=== PATIENT | female | born 1970 | race African-American/Black ===

== ENCOUNTER 2016-09-19 23:47 | Emergency (ER) | payer SELFPAY ==
[~2016-09-19] VITALS: Ht 160 cm; Wt 88.9 kg
[~2016-09-19 23:47] MED LIST: 1-ME1LIQ PO; CYCL-36 PO
[2016-09-19 23:50] VITALS: BP 174/113; PULSE 88; RESP 16; TEMP 98; O2SAT 99
--- NOTE | 2016-09-20 00:36 | PD ---
HPI Chief Complaint: ENT Complaint Time Seen by Provider: 00:00 Travel History International Travel<30 days: No Contact w/Intl Traveler<30days: No Traveled to known affect area: No History of Present Illness HPI 45-year-old female here with left ear pain. Symptoms started 3 days ago. It is aching pain, muffled hearing in the left ear. No drainage, discharge, cough , congestion, fevers, chills. No recent swimming, recent travel. She took Advil which helped with the pain. No other complaints. PFSH Past Medical History GERD: Yes Hypertension: Yes ?: Not : 4 Para: 3 Miscarriage: 1 : 0 Past Surgical History Section: Yes Social History Alcohol Use: Yes (OCCASIONALLY) Tobacco Use: Yes (1/2 ppd ) Substance Use: No Allergies-Medications (Allergen,Severity, Reaction): Coded Allergies: No Known Allergies (Unverified , 09/20/16) Reported Meds & Prescriptions Reported Meds & Active Scripts Active Amoxicillin 875 Mg Tab 875 Mg PO BID 10 Days Review of Systems Except as stated in HPI: all other systems reviewed are Neg Physical Exam Narrative GENERAL: Well-developed well-nourished female in no acute distress SKIN: Warm and dry. HEAD: Atraumatic. Normocephalic. EYES: Pupils equal and round. No scleral icterus. No injection or drainage. ENT: No nasal bleeding or discharge. Mucous membranes pink and moist. Slight loss of landmarks left tympanic membrane, somewhat erythematous tympanic murmur and. The external ear canal as well without erythema, debris, cerumen. No mastoid tenderness. Normal dentition. No oropharyngeal erythema or exudate. NECK: Trachea midline. No JVD. No lymphadenopathy. Data Data Last Documented VS Vital Signs Date Time Temp Pulse Resp B/P Pulse Ox O2 Delivery O2 Flow Rate FiO2 09/19/16 23:50 98.0 88 16 174/113 99 Room Air MDM Medical Decision Making Medical Screen Exam Complete: Yes Emergency Medical Condition: Yes Medical Record Reviewed: Yes Differential Diagnosis Left otitis media, left otitis externa, referred dental pain, eustachian tube dysfunction, mastoiditis, ruptured tympanic membrane Narrative Course Physical examination reveals mild left otitis media. She will be discharged with oral antibiotics. Diagnosis Primary Impression: Left otitis media Qualified Code: H66.002 - Acute suppurative otitis media of left ear without spontaneous rupture of tympanic membrane, recurrence not specified Additional Instructions: Medication as prescribed. Tylenol or Motrin for discomfort. Return for any emergent medical conditions. Med/Other Pt SpecificInfo: Prescription(s) given Scripts Amoxicillin 875 Mg [id number] Mg PO BID 10 Days Ref 0 Prov:Emma Walker DO 09/20/16 Disposition: 01 DISCHARGE HOME Condition: Stable José Miguel Greene Sep 20, 2016 00:36
[2016-09-20] MEDS ORDERED: AMOX875T PO (00:37)
== END 2016-09-20 01:15 | disposition home or self-care (01) ==
LOC: NEPB 23:47
DX: H66.92 Otitis media, unspecified, left ear (principal); I10 Essential (primary) hypertension; K21.9 Gastro-esophageal reflux disease without esophagitis; F17.210 Nicotine dependence, cigarettes, uncomplicated
CPT/HCPCS: 99282

== ENCOUNTER 2016-10-09 14:55 | Emergency (ER) | payer SELFPAY ==
[~2016-10-09] VITALS: Ht 160 cm; Wt 120.0 kg
[~2016-10-09 14:55] MED LIST changes: -1-ME1LIQ PO; +AMOX875T PO; -CYCL-36 PO
[2016-10-09 14:56] VITALS: BP 171/104; PULSE 79; RESP 14; TEMP 98; O2SAT 99
[2016-10-09] MEDS ORDERED: POLY10O LEFT EYE (15:39)
--- NOTE | 2016-10-09 15:39 | PD ---
HPI Chief Complaint: Eye Problems/Injury Time Seen by Provider: 15:38 Travel History International Travel<30 days: No Contact w/Intl Traveler<30days: No Traveled to known affect area: No History of Present Illness HPI 45-year-old female presents to the emergency Department with complaint of left eye redness, itching, drainage that she noticed at approximately 4 AM this morning upon awakening. Woke up with her left eye crusted shut. Reports sensitivity to light. Denies change in vision. Denies wearing contacts. Denies injury or foreign body. No one else with symptoms like this. Denies fever, chills, nausea, vomiting. Has not taken any medications or tried any treatments to alleviate her symptoms. Was just treated for a left ear infection a few weeks ago, otherwise denies recent illness. No known allergies. Has history of hypertension but does not take medications. Denies chest pain, headaches, confusion, blurred vision, nausea, vomiting, shortness of breath. No other modifying factors or associated signs and symptoms. PFSH Past Medical History GERD: Yes Hypertension: Yes (does not take medications) ?: Not LMP: 09/09/16 : 4 Para: 3 Miscarriage: 1 : 0 Past Surgical History Section: Yes Social History Alcohol Use: Yes (OCCASIONALLY) Tobacco Use: Yes (1/2 ppd ) Substance Use: No Allergies-Medications (Allergen,Severity, Reaction): Coded Allergies: No Known Allergies (Unverified , 09/20/16) Reported Meds & Prescriptions Reported Meds & Active Scripts Active Polytrim Opth Drops (Polymyxin/Trimethoprim Sulfate) 10,000-0.1 Unit/Ml-% Soln 2 Drop LEFT EYE Q6HR 7 Days Amoxicillin 875 Mg Tab 875 Mg PO BID 10 Days Review of Systems Except as stated in HPI: all other systems reviewed are Neg Physical Exam Narrative GENERAL: Well-nourished, well-developed female patient, in no acute distress; afebrile, nontoxic-appearing SKIN: Warm and dry. HEAD: Atraumatic. Normocephalic. EYES: Pupils equal and round at 3 mm with brisk reaction. PERRLA. EOMI. Left lid eversion with no foreign body noted. Left eye with scleral erythema and without lid edema. No orbital tenderness, erythema or cellulitis. Left eye with photophobia. No consensual photophobia. No scleral icterus. Purulent drainage noted to eyelashes and inner canthus. Carlin lamp exam normal. EARS: Bilateral pinnae and external canals appear within normal limits. Bilateral tympanic membranes without erythema, dullness or perforation. ENT: Mucosa pink and moist. Airway patent. NECK: Trachea midline. CARDIOVASCULAR: Regular rate. RESPIRATORY: No accessory muscle use. GASTROINTESTINAL: Rounded. NEUROLOGICAL: Awake and alert. Oriented 3. No obvious cranial nerve deficits. Motor grossly within normal limits. Normal speech. PSYCHIATRIC: Appropriate mood and affect; insight and judgment normal. Data Data Last Documented VS Vital Signs Date Time Temp Pulse Resp B/P Pulse Ox O2 Delivery O2 Flow Rate FiO2 10/09/16 14:56 98.0 79 14 171/104 99 MDM Medical Decision Making Medical Screen Exam Complete: Yes Emergency Medical Condition: Yes Medical Record Reviewed: Yes Differential Diagnosis Conjunctivitis, foreign body, corneal abrasion Narrative Course 45-year-old female physical exam consistent with left eye conjunctivitis. Carlin lamp exam is normal. Patient says she has history of hypertension but does not take medications. Patient is asymptomatic and denies symptoms of hypertension. Polytrim eyedrops prescribed for home. Patient is medically cleared and stable for discharge. Discussed reasons to return to the emergency department. Instructed patient to follow up with primary care provider. Patient agrees with treatment plan. The patients vital signs are stable and the patient is stable for outpatient follow-up and treatment. Patient discharged home, stable and in no acute distress. Diagnosis Primary Impression: Conjunctivitis, left eye Qualified Code: H10.32 - Acute conjunctivitis of left eye, unspecified acute conjunctivitis type Referrals: Primary Care Physician Patient Instructions: Conjunctivitis (ED), General Instructions Departure Forms: Tests/Procedures, Work Release Enter return to work date: Oct 11, 2016 Additional Instructions: Conjunctivitis is contagious Use antibiotic drops as prescribed Apply warm or cool compresses to both eyes for a few minutes several times daily to minimize irritation Avoid triggers, such as allergens, that may irritate your eyes Wash your hands frequently Do not share washcloths, towels, pillows, or any other material that has touched your eyes with any other household members Follow-up with your primary care provider Follow-up with ophthalmology as needed Return to the emergency department immediately with worsening of symptoms Med/Other Pt SpecificInfo: Prescription(s) given Scripts Polymyxin B-Trimethoprim Opth Drops (Polytrim Opth Drops)10,000-0.1 Unit/Ml-% Soln2 Drop LEFT EYE Q6HR 7 Days Ref 0 Prov:Laquita Diaz 10/09/16 Disposition: 01 DISCHARGE HOME Condition: Stable Laquita Diaz Oct 09, 2016 15:39
== END 2016-10-09 15:54 | disposition home or self-care (01) ==
LOC: NEPB 14:55
DX: H10.32 Unspecified acute conjunctivitis, left eye (principal)
CPT/HCPCS: 99282

== ENCOUNTER 2016-11-11 11:59 | Emergency (ER) | payer OTHER, BC ==
[~2016-11-11] VITALS: Ht 160 cm; Wt 80.0 kg
[~2016-11-11 11:59] MED LIST changes: +POLY10O LEFT EYE
[2016-11-11 12:00] VITALS: BP 177/112; PULSE 72; RESP 18; TEMP 98.2; O2SAT 98
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
[2016-11-11] MEDS ORDERED: KETOROLAC TROMETHAMINE 60 MG/2 ML (IM) VIAL IM ONE (12:45)
[2016-11-11] MEDS ORDERED: ORPHENADRINE INJ 60 MG/2 ML AMP IM ONE (12:45)
[2016-11-11 13:23] VITALS: BP 161/84; PULSE 66
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
[2016-11-11] MEDS ORDERED: IBUP800T23 PO (14:04)
[2016-11-11] MEDS ORDERED: ROBA500T PO (14:04)
== END 2016-11-11 15:59 | disposition home or self-care (01) ==
LOC: NEPB 11:59
DX: S93.401A Sprain of unspecified ligament of right ankle, initial encounter (principal); S40.011A Contusion of right shoulder, initial encounter; F17.210 Nicotine dependence, cigarettes, uncomplicated; I10 Essential (primary) hypertension; R07.89 Other chest pain; V49.49XA Driver injured in collision with other motor vehicles in traffic accident, initial encounter; Y93.89 Activity, other specified; Y92.410 Unspecified street and highway as the place of occurrence of the external cause
CPT/HCPCS: 71010; 73030; 73610; 96372; 99284; E0113; J1885; J2360; L1906

== ENCOUNTER 2016-12-27 23:29 | Emergency (ER) | payer BC ==
[~2016-12-27] VITALS: Ht 172.7 cm; Wt 65.0 kg
[~2016-12-27 23:29] MED LIST changes: +IBUP800T23 PO; +ROBA500T PO
[2016-12-27 23:32] VITALS: BP 159/94; PULSE 85; RESP 16; TEMP 98.7
[2016-12-28] MEDS ORDERED: PRED20 PO (12:08)
[2016-12-28] MEDS ORDERED: CYCL1TAB29 PO (12:08)
== END 2016-12-28 02:53 | disposition left against medical advice (07) ==
LOC: NED 23:29
DX: M79.1 Myalgia (principal)
CPT/HCPCS: 99281

== ENCOUNTER 2016-12-28 11:19 | Emergency (ER) | payer BC ==
[~2016-12-28] VITALS: Ht 162.6 cm; Wt 82.0 kg
[2016-12-28 11:21] VITALS: BP 181/123; PULSE 83; RESP 20; TEMP 98; O2SAT 99
[2016-12-28] MEDS ORDERED: KETOROLAC TROMETHAMINE 60 MG/2 ML (IM) VIAL IM ONE (12:00)
[2016-12-28] MEDS ORDERED: PRED20 PO (12:08)
[2016-12-28] MEDS ORDERED: CYCL1TAB29 PO (12:08)
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
== END 2016-12-28 12:39 | disposition home or self-care (01) ==
LOC: NEPD 11:19
DX: M54.32 Sciatica, left side (principal); I10 Essential (primary) hypertension; F17.210 Nicotine dependence, cigarettes, uncomplicated; V89.2XXD Person injured in unspecified motor-vehicle accident, traffic, subsequent encounter
CPT/HCPCS: 96372; 99283; J1885

== ENCOUNTER 2017-09-12 11:54 | Observation (INO) | payer SELFPAY ==
[~2017-09-12] VITALS: Ht 162.6 cm; Wt 90.0 kg
[2017-09-12] VITALS (8 sets, daily range): BP systolic 141–215; BP diastolic 85–127; PULSE 67–86; RESP 16–18; TEMP 98–98.6; O2SAT 97–100
[~2017-09-12 11:54] MED LIST changes: -AMOX875T PO; +CYCL10TA PO; -IBUP800T23 PO; -POLY10O LEFT EYE; +PRED20 PO; -ROBA500T PO
--- NOTE | 2017-09-12 12:13 | PD ---
HPI Chief Complaint: Chest Pain Time Seen by Provider: 12:04 Travel History International Travel<30 days: No Contact w/Intl Traveler<30days: No Traveled to known affect area: No History of Present Illness HPI 46-year-old Afro-[place]hi female presents to emergency department with history of chest pressure and discomfort with radiation to the left arm starting yesterday and intermittently worsening over the past 24 hours. Patient has no documented medical history of this states she's had in the past but did not get seen. Patient currently has no history of heart disease or hypercholesterolemia. She is noted to be hypertensive in triage but states she is not on any medications currently. Has history of GERD treated with over-the- counter ranitidine. She reports no recent heartburn symptoms. She denies nausea or vomiting. Denies shortness of breath but describes her pain as a tightness in the left upper chest with intermittent pain. Pain is currently 5- 6 out of 10. She denies abdominal pain. She denies urinary symptoms. She is an occasional smoker but denies significant alcohol use. No recent fever or other illness. There is a strong family history of hypertension and heart disease in the family. Patient has not tried taking anything for this. She does not take aspirin. She has no known drug allergies. PFSH Past Medical History GERD: Yes Hypertension: Yes Immunizations Current: Yes ?: Not LMP: 08/03/17 : 4 Para: 3 Miscarriage: 1 : 0 Past Surgical History Section: Yes (X1) Social History Alcohol Use: Yes (OCCASIONALLY) Tobacco Use: Yes (6-7 ppd) Substance Use: No Allergies-Medications (Allergen,Severity, Reaction): Coded Allergies: No Known Allergies (Unverified , 09/12/17) Reported Meds & Prescriptions Reported Meds & Active Scripts Active No Active Prescriptions or Reported Medications Review of Systems Except as stated in HPI: all other systems reviewed are Neg General / Constitutional: No: Fever Eyes: No: Visual changes HENT: No: Headaches Cardiovascular: Positive: Chest Pain or Discomfort, No: Palpitations, Irregular Rhythm, Tachycardia, Diaphoresis, Syncope, Dyspnea on exertion, Varicosities, Edema Respiratory: No: Cough, Shortness of Breath, Wheezing Gastrointestinal: No: Nausea, Vomiting, Diarrhea, Abdominal Pain Genitourinary: No: Dysuria Musculoskeletal: No: Pain Skin: No Rash Neurologic: No: Weakness Psychiatric: No: Depression Endocrine: No: Polydipsia Hematologic/Lymphatic: No: Easy Bruising Physical Exam Narrative GENERAL: Patient appears mildly uncomfortable and somewhat anxious. SKIN: Warm and dry. Normal color. Normal turgor. No diaphoresis. HEAD: Atraumatic. Normocephalic. EYES: Pupils equal and round. No scleral icterus. No injection or drainage. ENT: No nasal bleeding or discharge. Mucous membranes pink and moist. Pharynx is clear. Airway is patent. NECK: Trachea midline. Supple nontender. CARDIOVASCULAR: Regular rate and rhythm. RESPIRATORY: No accessory muscle use. Clear to auscultation. Breath sounds equal bilaterally. GASTROINTESTINAL: Abdomen soft, non-tender, nondistended. Hepatic and splenic margins not palpable. MUSCULOSKELETAL: Extremities without clubbing, cyanosis, or edema. No obvious deformities. NEUROLOGICAL: Awake and alert. No obvious cranial nerve deficits. Motor grossly within normal limits. Five out of 5 muscle strength in the arms and legs. Normal speech. PSYCHIATRIC: Appropriate mood and affect; insight and judgment normal. Data Data Last Documented VS Vital Signs Date Time Temp Pulse Resp B/P (MAP) Pulse Ox O2 Delivery O2 Flow Rate FiO2 09/12/17 12:12 86 16 215/127 (156) 100 Room Air 165/96 (119) 09/12/17 11:57 98.6 Orders Orders Electrocardiogram (09/12/17 12:09) Ckmb (Isoenzyme) Profile (09/12/17 12:09) Complete Blood Count With Diff (09/12/17 12:09) Comprehensive Metabolic Panel (09/12/17 12:09) D-Dimer (09/12/17 12:09) Magnesium (Mg) (09/12/17 12:09) Prothrombin Time / Inr (Pt) (09/12/17 12:09) Act Partial Throm Time (Ptt) (09/12/17 12:09) Troponin I (09/12/17 12:09) Lipase (09/12/17 12:09) Chest, Single Ap (09/12/17 12:09) Ecg Monitoring (09/12/17 12:09) Bilateral Bp Monitoring (09/12/17 12:09) Iv Access Insert/Monitor (09/12/17 12:09) Oximetry (09/12/17 12:09) Oxygen Administration (09/12/17 12:09) Aspirin Chew (Aspirin Chew) (09/12/17 12:15) Morphine Inj (Morphine Inj) (09/12/17 12:15) Sodium Chloride 0.9% Flush (Ns Flush) (09/12/17 12:15) Nitroglycerin Sl (Nitrostat Sl) (09/12/17 12:15) Metoprolol Tartrate Inj (Lopressor Inj) (09/12/17 12:15) Sodium Chlorid 0.9% 500 Ml Inj (Ns 500 M (09/12/17 12:15) Morphine Inj (Morphine Inj) (09/12/17 12:15) CKMB (09/12/17 12:20) CKMB% (09/12/17 12:20) Admit Order (Ed Use Only) (09/12/17 13:09) Labs Laboratory Tests Test 09/12/17 12:20 White Blood Count 6.8 TH/MM3 Red Blood Count 4.11 MIL/MM3 Hemoglobin 12.8 GM/DL Hematocrit 38.1 % Mean Corpuscular Volume 92.8 FL Mean Corpuscular Hemoglobin 31.2 PG Mean Corpuscular Hemoglobin Concent 33.6 % Red Cell Distribution Width 15.3 % Platelet Count 318 TH/MM3 Mean Platelet Volume 7.1 FL Neutrophils (%) (Auto) 55.6 % Lymphocytes (%) (Auto) 33.5 % Monocytes (%) (Auto) 7.3 % Eosinophils (%) (Auto) 2.9 % Basophils (%) (Auto) 0.7 % Neutrophils # (Auto) 3.8 TH/MM3 Lymphocytes # (Auto) 2.3 TH/MM3 Monocytes # (Auto) 0.5 TH/MM3 Eosinophils # (Auto) 0.2 TH/MM3 Basophils # (Auto) 0.1 TH/MM3 CBC Comment DIFF FINAL Differential Comment Prothrombin Time 9.7 SEC Prothromb Time International Ratio 1.0 RATIO Activated Partial Thromboplast Time 26.5 SEC D-Dimer Quantitative (PE/DVT) 0.70 MG/L FEU Blood Urea Nitrogen 15 MG/DL Creatinine 0.97 MG/DL Random Glucose 88 MG/DL Total Protein 7.8 GM/DL Albumin 3.5 GM/DL Calcium Level 8.4 MG/DL Magnesium Level 1.9 MG/DL Alkaline Phosphatase 72 U/L Aspartate Amino Transf (AST/SGOT) 15 U/L Alanine Aminotransferase (ALT/SGPT) 19 U/L Total Bilirubin 0.3 MG/DL Sodium Level 139 MEQ/L Potassium Level 4.3 MEQ/L Chloride Level 108 MEQ/L Carbon Dioxide Level 23.4 MEQ/L Anion Gap 8 MEQ/L Estimat Glomerular Filtration Rate 75 ML/MIN Total Creatine Kinase 120 U/L Creatine Kinase MB 0.9 NG/ML Troponin I LESS THAN 0.02 NG/ML Lipase 162 U/L MDM Medical Decision Making Medical Screen Exam Complete: Yes Emergency Medical Condition: Yes Differential Diagnosis Atypical chest pain. Chest pressure. Cardiac syndrome. Hypertensive crisis. Narrative Course Patient appears medically stable at time of exam. EKG is performed showing normal sinus rhythm without ST specific ST changes. IV access is obtained and labs are ordered including CBC, CMP, lipase, cardiac panel, coagulation studies, and d-dimer. The patient is given 324 mg aspirin by mouth as well as 2 mg morphine IV as well as sublingual nitroglycerin and 3 when necessary. Lopressor IV 5 mg 3 when necessary is also ordered. The patient was given 324 mg aspirin as well as sublingual nitroglycerin and 2 mg morphine IV with resolution of pain. Blood pressure also normalized to 150/83. Lopressor was held. Third nitroglycerin was held. Labs show normal CBC, unremarkable CMP, lipase is normal. Coagulation studies are normal as well. D-dimer is 0.70. CTA was ordered and is negative per radiologist for pulmonary embolism. Troponin is 0.02 Patient agrees to be admitted to the chest pain center. Diagnosis Primary Impression: Chest pain at rest Admitting Information Admitting Physician Requests: Observation Scripts No Active Prescriptions or Reported Meds Condition: Stable Shailesh Rogers Sep 12, 2017 12:13
[2017-09-12] MEDS ORDERED: SODIUM CHLORID 0.9% 500 ML INJ 500 ML IV ONE (12:15)
[2017-09-12] MEDS ORDERED: MORPHINE SULFATE 2 MG/ML INJ IV PUSH ONE (12:15)
[2017-09-12] MEDS ORDERED: MORPHINE SULFATE 4 MG/ML INJ IV PUSH ONE (12:15)
[2017-09-12] MEDS ORDERED: SODIUM CHLORIDE 0.9% FLUSH 10 ML FLUSH IVF PRN (12:15)
[2017-09-12] MEDS ORDERED: ASPIRIN 81 MG CHEW TAB PO ONE (12:15)
[2017-09-12] MEDS: METOPROLOL TARTRATE 5 MG/5 ML VIAL IVS SCH ×3 (12:15→12:25)
[2017-09-12] MEDS: NITROGLYCERIN 0.4 MG SL 25 TABS/BTL SL SCH ×3 (12:25→12:45)
[2017-09-12 12:36] LABS: AUTOMATED NEUTROPHIL # 3.8 TH/MM3 (1.8-7.7); BASOPHIL # 0.1 TH/MM3 (0-0.2); BASOPHIL % 0.7 % (0.0-2.0); EOSINOPHIL # 0.2 TH/MM3 (0-0.4); EOSINOPHIL % 2.9 % (0.0-4.0); HEMATOCRIT 38.1 % (35.0-46.0); HEMOGLOBIN 12.8 GM/DL (11.6-15.3); LYMPH % 33.5 % (9.0-44.0); LYMPHOCYTE # 2.3 TH/MM3 (1.0-4.8); MEAN CELL VOLUME 92.8 FL (80.0-100.0); MEAN CORPUSCULAR HEMOGLOBIN 31.2 PG (27.0-34.0); MEAN CORPUSCULAR HGB CONC 33.6 % (32.0-36.0); MEAN PLATELET VOLUME 7.1 FL (7.0-11.0); MONO % 7.3 % (0.0-8.0); MONOCYTE # 0.5 TH/MM3 (0-0.9); NEUT % 55.6 % (16.0-70.0); PLATELET COUNT 318 TH/MM3 (150-450); RED BLOOD COUNT 4.11 MIL/MM3 (4.00-5.30); RED CELL DISTRIBUTION WIDTH 15.3 % (11.6-17.2); WHITE BLOOD COUNT 6.8 TH/MM3 (4.0-11.0)
[2017-09-12 12:51] LABS: PROTHROMBIN TIME - PATIENT 9.7 SEC (9.8-11.6)
[2017-09-12 12:53] LABS: ALBUMIN 3.5 GM/DL (3.4-5.0); AST (GOT) 15 U/L (15-37); BICARBONATE 23.4 MEQ/L (21.0-32.0); BLOOD UREA NITROGEN 15 MG/DL (7-18); CALCIUM 8.4 MG/DL (8.5-10.1); CHLORIDE 108 MEQ/L (98-107); CREATININE 0.97 MG/DL (0.50-1.00); GLOMERULAR FILTRATION RATE 75 ML/MIN (>89); GLUCOSE,RANDOM 88 MG/DL (74-106); LIPASE 162 U/L (73-393); MAGNESIUM 1.9 MG/DL (1.5-2.5); SODIUM (NA) 139 MEQ/L (136-145)
[2017-09-12 12:54] LABS: ALT (GPT) 19 U/L (10-53)
--- NOTE | 2017-09-12 12:58 | RADRPT ---
EXAM DATE/TIME: 09/12/2017 12:32 [facility] COMPARISON: CHEST SINGLE AP, November 11, 2016, 13:07. INDICATIONS : Chest tightness and left sided chest pain for one day. MEDICAL HISTORY : Hypertension. SURGICAL HISTORY : None. ENCOUNTER: Initial ACUITY: 2 days PAIN SCORE: 5/10 LOCATION: Left chest FINDINGS: A single view of the chest demonstrates the lungs to be symmetrically aerated without evidence of mas s, infiltrate or effusion. The cardiomediastinal contours are unremarkable. Osseous structures are intact. CONCLUSION: Normal examination. Cleve Roy MD on September 12, 2017 at 12:56 Board Certified Radiologist. This report was verified electronically.
[2017-09-12 12:59] LABS: ALKALINE PHOSPHATASE 72 U/L (45-117); TOTAL BILIRUBIN ADULT 0.3 MG/DL (0.2-1.0); TOTAL PROTEIN 7.8 GM/DL (6.4-8.2); TROPONIN I LESS THAN 0.02 NG/ML (0.02-0.05)
[2017-09-12 13:15] LABS: D-DIMER 0.7 MG/L FEU (0.00-0.50)
[2017-09-12] MEDS ORDERED: IOHEXOL 350 MG/ML 10 ML VIAL (for RAD DIAG) IVCONTRAST ONE (14:05)
--- NOTE | 2017-09-12 14:10 | RADRPT ---
EXAM DATE/TIME: 09/12/2017 13:50 [facility] COMPARISON: No previous studies available for comparison. INDICATIONS : Chest pain/ pressure. IV CONTRAST: 80 cc Omnipaque 350 (iohexol) IV RADIATION DOSE: 22.96 CTDIvol (mGy) MEDICAL HISTORY : Hypertension. Gastroesophageal reflux disease. SURGICAL HISTORY : None. ENCOUNTER: Initial ACUITY: 2 days PAIN SCALE: 7/10 LOCATION: Bilateral chest TECHNIQUE: Volumetric scanning of the chest was performed using a pulmonary embolism protocol MIP images were re constructed. Using automated exposure control and adjustment of the mA and/or kV according to patien t size, radiation dose was kept as low as reasonably achievable to obtain optimal diagnostic quality images. DICOM format image data is available electronically for review and comparison. Follow-up recommendations for detected pulmonary nodules are based at a minimum on nodule size and pa tient risk factors according to Fleischner Society Guidelines. FINDINGS: PULMONARY ARTERIES: The opacification of the pulmonary arteries is suboptimal. There is better enhancement of the pulmona ry veins and systemic arterial structures in the chest. No filling defects are seen in the pulmonary arteries through the segmental level. LUNGS: There is stable minimal linear atelectasis at the left lingula and at the posterior subpleural lower lobes. PLEURAE: There is no pleural thickening or pleural effusion. MEDIASTINUM: There is good visualization of the great vessels of the middle mediastinum. No evidence of mediastin al or hilar adenopathy/mass. MUSCULOSKELETAL: Within normal limits for patient age. MISCELLANEOUS: The visualized upper abdominal organs demonstrate no acute abnormality. CONCLUSION: No pulmonary embolus seen. Cleve Roy MD on September 12, 2017 at 14:04 Board Certified Radiologist. This report was verified electronically.
[2017-09-12] MEDS ORDERED: ONDANSETRON HCL 4 MG/2 ML VIAL IV PUSH PRN (14:15)
[2017-09-12] MEDS ORDERED: ACETAMINOPHEN 500 MG CPLT PO PRN (14:15)
[2017-09-12] MEDS ORDERED: NITROGLYCERIN 0.4 MG SL 25 TABS/BTL SL PRN (14:15)
--- NOTE | 2017-09-12 15:02 | PD.CARD.PN ---
Subjective Subjective Remarks Discussed and reviewed with AUDIT MGR 46 yo black lady with about a years history of internittant chest pain that is variable in location, duration and character. She can define no precipitating or relieving events. It happens all hours of day but perhaps more common in late afternoon. Usually lasts an hour or more but can last all day. No radiation, no SOB, Diaphoresis, nausea associated. She also has a problem with reflux and GI pain but feels this is a bit different. History fully discussed in H&P Objective Medications Current Medications Medications (Trade) Dose Ordered Sig/Madison Route Start Time Stop Time Status Last Admin (NS Flush) 2 ml UNSCH PRN IVF 09/12/17 12:15 (NS Flush) 2 ml BID IV FLUSH 09/12/17 21:00 (Tylenol) 500 mg Q4H PRN PO 09/12/17 14:15 (Zofran Inj) 4 mg Q6H PRN IV PUSH 09/12/17 14:15 (Nitrostat Sl) 0.4 mg Q5M PRN SL 09/12/17 14:15 (Aspirin) 325 mg DAILY PO 09/13/17 09:00 Vital Signs / I&O Vital Signs Date Time Temp Pulse Resp B/P (MAP) Pulse Ox O2 Delivery O2 Flow Rate FiO2 09/12/17 14:09 82 16 157/96 (116) 98 Room Air 09/12/17 12:12 86 16 215/127 (156) 100 Room Air 165/96 (119) 09/12/17 11:57 98.6 77 16 203/108 (139) 100 Room Air I/O 09/11/17 09/11/17 09/11/17 09/12/17 09/12/17 09/12/17 07:00 15:00 23:00 07:00 15:00 23:00 Intake Total 500 ml Balance 500 ml Intake IV Total 500 ml Physical Exam Obese tattoos Neck without JVD, masses nodes or bruits Chest with decreased BS (prob due to obesity) but clear CV RSR with no GRM Abd very obese with no GR or mass palpable Ext with no CCE although she reports that she swells frequently Laboratory Laboratory Tests Test 09/12/17 12:20 White Blood Count 6.8 TH/MM3 Red Blood Count 4.11 MIL/MM3 Hemoglobin 12.8 GM/DL Hematocrit 38.1 % Mean Corpuscular Volume 92.8 FL Mean Corpuscular Hemoglobin 31.2 PG Mean Corpuscular Hemoglobin Concent 33.6 % Red Cell Distribution Width 15.3 % Platelet Count 318 TH/MM3 Mean Platelet Volume 7.1 FL Neutrophils (%) (Auto) 55.6 % Lymphocytes (%) (Auto) 33.5 % Monocytes (%) (Auto) 7.3 % Eosinophils (%) (Auto) 2.9 % Basophils (%) (Auto) 0.7 % Neutrophils # (Auto) 3.8 TH/MM3 Lymphocytes # (Auto) 2.3 TH/MM3 Monocytes # (Auto) 0.5 TH/MM3 Eosinophils # (Auto) 0.2 TH/MM3 Basophils # (Auto) 0.1 TH/MM3 CBC Comment DIFF FINAL Differential Comment Prothrombin Time 9.7 SEC Prothromb Time International Ratio 1.0 RATIO Activated Partial Thromboplast Time 26.5 SEC D-Dimer Quantitative (PE/DVT) 0.70 MG/L FEU Blood Urea Nitrogen 15 MG/DL Creatinine 0.97 MG/DL Random Glucose 88 MG/DL Total Protein 7.8 GM/DL Albumin 3.5 GM/DL Calcium Level 8.4 MG/DL Magnesium Level 1.9 MG/DL Alkaline Phosphatase 72 U/L Aspartate Amino Transf (AST/SGOT) 15 U/L Alanine Aminotransferase (ALT/SGPT) 19 U/L Total Bilirubin 0.3 MG/DL Sodium Level 139 MEQ/L Potassium Level 4.3 MEQ/L Chloride Level 108 MEQ/L Carbon Dioxide Level 23.4 MEQ/L Anion Gap 8 MEQ/L Estimat Glomerular Filtration Rate 75 ML/MIN Total Creatine Kinase 120 U/L Creatine Kinase MB 0.9 NG/ML Troponin I LESS THAN 0.02 NG/ML Lipase 162 U/L Imaging Last [address] Angiography 09/12/17 1322 Signed Impressions: Service Date/Time: Tuesday, September 12, 2017 13:50 - CONCLUSION: No pulmonary embolus seen. Cleve Roy MD Chest X-Ray 09/12/17 1209 Signed Impressions: Service Date/Time: Tuesday, September 12, 2017 12:32 - CONCLUSION: Normal examination. Cleve Roy MD Assessment and Plan Problem List: (1) Chest pain, atypical ICD Codes: R07.89 - Other chest pain Status: Acute Plan: Evaluate with QUALITY CONTROL COORDINATOR protocol (2) Obesity ICD Codes: E66.9 - Obesity, unspecified Plan: Discussed need to diet and exercise (3) GERD (gastroesophageal reflux disease) ICD Codes: K21.9 - Gastro-esophageal reflux disease without esophagitis Plan: Needs to develop FU with OP PCP and GI Rios Carlson MD Sep 12, 2017 15:02
--- NOTE | 2017-09-12 15:39 | HHI.HP ---
HPI Service [facility] Dr. Carlson Primary Care Physician No Primary Care Physician Chief Complaint chest pain History of Present Illness 1 year history of intermittent chest pains without any precipitating factors, can occur with activity or rest. Typically can occur intermittently throughout the day and last for hours. Began yesterday afternoon and was still occurring and worsening this morning prompting her to come to the ER for evaluation. She does get associated nausea but no vomiting. Does have a history of GERD and was on Rx medicine when she had a PCP, now takes OTC Zantac with some relief. At times also gets associated dyspnea. Has diaphoresis intermittently but doesn't believe related. Has swelling of ankles with prolonged standing at work or with sitting but generally improves at night when legs elevated. No PND or Orthopnea. Denies any past cardiac work up. Nitro SL did not help the pain but endorses the Morphine decreased it to a low level. Has had B/P elevations in past and endorses she was recommended to treat with healthy lifestyle changes, has not been on medication for it. Review of Systems Consitutional: DENIES: Fatigue, Fever, Chills, Weight gain, Weight loss Eyes: DENIES: Amaurosis Fugax, Change in vision HEENT: DENIES: Lightheadedness, Change in hearing Respiratory: COMPLAINS OF: See HPI, Shortness of breath Cardiovascular: COMPLAINS OF: See HPI, Chest pain Gastrointestinal: COMPLAINS OF: Nausea, Reflux Genitourinary: DENIES: Urinary incontinence, Difficulty voiding Integumentary: DENIES: Rash Neurologic: DENIES: Tingling or numbness, Memory problems, Poor Balance, Stroke symptoms Musculoskeletal: DENIES: Joint pain, Muscle pain, Limited range of motion, Back pain Psychiatric: DENIES: Anxiety, Depression, Sleep disturbances Hematologic: DENIES: Bruising tendencies, Bleeding tendencies Endocrine: DENIES: Weight gain, Weight loss, Thyroid disease Past Family Social History Allergies: Coded Allergies: No Known Allergies (Unverified , 09/12/17) Past Medical History GERD, HTN, Obesity Past Surgical History x 1 Reported Medications Reported Meds & Active Scripts Active No Active Prescriptions or Reported Medications OTC Zantac PRN GERD symptoms Active Ordered Medications Current Medications Medications (Trade) Dose Ordered Sig/[place] Route Start Time Stop Time Status Last Admin (NS Flush) 2 ml UNSCH PRN IVF 09/12/17 12:15 (NS Flush) 2 ml BID IV FLUSH 09/12/17 21:00 (Tylenol) 500 mg Q4H PRN PO 09/12/17 14:15 (Zofran Inj) 4 mg Q6H PRN IV PUSH 09/12/17 14:15 (Nitrostat Sl) 0.4 mg Q5M PRN SL 09/12/17 14:15 (Aspirin) 325 mg DAILY PO 09/13/17 09:00 Family History Mom with HTN. Both Maternal Grandparents with heart disease. Father's history is unknown. Maternal Grandfather with heart disease. Social History Works in [employer]. Drinks ETOH occasionally on the weekends. Tobacco use 1/3 PPD x 6 years. Denies Illicit drug use. Endorses active at work duties, doesn't exercise much outside of work. Physical Exam Vital Signs Vital Signs Date Time Temp Pulse Resp B/P (MAP) Pulse Ox O2 Delivery O2 Flow Rate FiO2 09/12/17 15:00 09/12/17 14:09 82 16 157/96 (116) 98 Room Air 09/12/17 12:12 86 16 215/127 (156) 100 Room Air 165/96 (119) 09/12/17 11:57 98.6 77 16 203/108 (139) 100 Room Air Physical Exam GENERAL: 46 y.o. AA obese female laying quietly on stretcher seen in ER. Pleasant and friendly, well appearing in NAD. SKIN: Warm and dry. HEAD: Atraumatic. Normocephalic. EYES: Pupils equal and round. No scleral icterus. No injection or drainage. ENT: No nasal bleeding or discharge. Mucous membranes pink and moist. NECK: Trachea midline. No JVD. No Carotid Bruits. CARDIOVASCULAR: Regular rate and rhythm. Two heart sounds. No rub, gallop, or murmur. RESPIRATORY: No accessory muscle use. Clear to auscultation. Breath sounds equal bilaterally. GASTROINTESTINAL: Abdomen soft, obese, non-tender, nondistended. Hepatic and splenic margins not palpable. MUSCULOSKELETAL: Extremities without clubbing, cyanosis, or edema. No obvious deformities. NEUROLOGICAL: Awake and alert. No obvious cranial nerve deficits. Motor grossly within normal limits. Five out of 5 muscle strength in the arms and legs. Normal speech. PSYCHIATRIC: Appropriate mood and affect; insight and judgment normal. Laboratory Laboratory Tests Test 09/12/17 12:20 White Blood Count 6.8 Red Blood Count 4.11 Hemoglobin 12.8 Hematocrit 38.1 Mean Corpuscular Volume 92.8 Mean Corpuscular Hemoglobin 31.2 Mean Corpuscular Hemoglobin Concent 33.6 Red Cell Distribution Width 15.3 Platelet Count 318 Mean Platelet Volume 7.1 Neutrophils (%) (Auto) 55.6 Lymphocytes (%) (Auto) 33.5 Monocytes (%) (Auto) 7.3 Eosinophils (%) (Auto) 2.9 Basophils (%) (Auto) 0.7 Neutrophils # (Auto) 3.8 Lymphocytes # (Auto) 2.3 Monocytes # (Auto) 0.5 Eosinophils # (Auto) 0.2 Basophils # (Auto) 0.1 CBC Comment DIFF FINAL Differential Comment Prothrombin Time 9.7 Prothromb Time International Ratio 1.0 Activated Partial Thromboplast Time 26.5 D-Dimer Quantitative (PE/DVT) 0.70 Blood Urea Nitrogen 15 Creatinine 0.97 Random Glucose 88 Total Protein 7.8 Albumin 3.5 Calcium Level 8.4 Magnesium Level 1.9 Alkaline Phosphatase 72 Aspartate Amino Transf (AST/SGOT) 15 Alanine Aminotransferase (ALT/SGPT) 19 Total Bilirubin 0.3 Sodium Level 139 Potassium Level 4.3 Chloride Level 108 Carbon Dioxide Level 23.4 Anion Gap 8 Estimat Glomerular Filtration Rate 75 Total Creatine Kinase 120 Creatine Kinase MB 0.9 Troponin I LESS THAN 0.02 Lipase 162 Result Diagram: 09/12/17 1220 09/12/17 1220 Imaging Last [address] Angiography 09/12/17 1322 Signed Impressions: Service Date/Time: Tuesday, September 12, 2017 13:50 - CONCLUSION: No pulmonary embolus seen. Cleve Roy MD Chest X-Ray 09/12/17 1209 Signed Impressions: Service Date/Time: Tuesday, September 12, 2017 12:32 - CONCLUSION: Normal examination. Cleve Roy MD Course EKG #1 SR with Sinus Arrhythmia. Minimal voltage criteria for LVH. No ischemia Caprini VTE Risk Assessment Caprini VTE Risk Assessment: No/Low Risk (score <= 1) Caprini Risk Assessment Model Point Value = 1 Point Value = 2 Point Value = 3 Point Value = 5 Age 41-60 Minor surgery BMI > 25 kg/m2 Swollen legs Varicose veins or History of unexplained or recurrent spontaneous Oral contraceptives or hormone replacement Sepsis (< 1 month) Serious lung disease, including pneumonia (< 1 month) Abnormal pulmonary function Acute myocardial infarction Congestive heart failure (< 1 month) History of inflammatory bowel disease Medical patient at bed rest Age 61-74 Arthroscopic surgery Major open surgery (> 45 min) Laparoscopic surgery (> 45 min) Malignancy Confined to bed (> 72 hours) Immobilizing plaster cast Central venous access Age >= 75 History of VTE Family history of VTE Factor V Leiden Prothrombin [id number] Lupus anticoagulant Anticardiolipin antibodies Elevated serum homocysteine Heparin-induced thrombocytopenia Other congenital or acquired thrombophilia Stroke (< 1 month) Elective arthroplasty Hip, pelvis, or leg fracture Acute spinal cord injury (< 1 month) Prophylaxis Regimen Total Risk Factor Score Risk Level Prophylaxis Regimen 0-1 Low Early ambulation 2 Moderate Order ONE of the following: *Sequential Compression Device (SCD) *Heparin 5000 units SQ BID 3-4 Higher Order ONE of the following medications: *Heparin 5000 units SQ TID *Enoxaparin/Lovenox 40 mg SQ daily (WT < 150 kg, CrCl > 30 mL/min) *Enoxaparin/Lovenox 30 mg SQ daily (WT < 150 kg, CrCl > 10-29 mL/min) *Enoxaparin/Lovenox 30 mg SQ BID (WT < 150 kg, CrCl > 30 mL/min) AND/OR *Sequential Compression Device (SCD) 5 or more Highest Order ONE of the following medications: *Heparin 5000 units SQ TID (Preferred with Epidurals) *Enoxaparin/Lovenox 40 mg SQ daily (WT < 150 kg, CrCl > 30 mL/min) *Enoxaparin/Lovenox 30 mg SQ daily (WT < 150 kg, CrCl > 10-29 mL/min) *Enoxaparin/Lovenox 30 mg SQ BID (WT < 150 kg, CrCl > 30 mL/min) AND *Sequential Compression Device (SCD) Assessment and Plan Problem List: (1) Chest pain, atypical ICD Codes: R07.89 - Other chest pain Status: Acute Plan: Patient will stay in [facility] for 23 hr observation with completion of rule out for ACS with serial EKGs/Enzymes. Patient was seen and evaluated by Dr. Carlson in Cardiology. Plan for Lexiscan in AM for further cardiac evaluation if patient rules out. (2) Obesity ICD Codes: E66.9 - Obesity, unspecified Status: Chronic Plan: Encourage heart healthy weight management diet and exercise to tolerance. F/U with PCP of choice encouraged. (3) GERD (gastroesophageal reflux disease) ICD Codes: K21.9 - Gastro-esophageal reflux disease without esophagitis Status: Chronic Plan: OTC Ranitidine PRN. F/U with PCP. Healthy lifestyle changes recommended. Tobacco Cessation recommended and discussed. (4) Elevated blood pressure reading ICD Codes: R03.0 - Elevated blood-pressure reading, without diagnosis of hypertension Plan: Monitor blood pressure during admission. Healthy lifestyle changes recommended as well as f/u PCP. Addition of B/P medication if necessary. Code Status Full code Discussed Condition With Dr. Carlson reviewed all history and examined patient & further plan recommended as above. Problem Qualifiers (1) Obesity: Qualified Codes: E66.09 - Other obesity due to excess calories; Z68.34 - Body mass index (bmi) 34.0-34.9, adult Ratna Hayward [facility] Sep 12, 2017 15:39
[2017-09-12] MEDS ORDERED: FAMOTIDINE 20 MG TAB PO PRN (15:45)
[2017-09-12] MEDS ORDERED: cloNIDine HCL 0.1 MG TAB PO PRN (16:00)
[2017-09-12 16:15] LABS: TROPONIN I LESS THAN 0.02 NG/ML (0.02-0.05)
[2017-09-12 18:48] LABS: TROPONIN I LESS THAN 0.02 NG/ML (0.02-0.05)
[2017-09-12] MEDS: SODIUM CHLORIDE 0.9% FLUSH 10 ML FLUSH IV FLUSH SCH (20:08)
--- NOTE | 2017-09-12 22:16 | EKG ---
Date Performed: 09/12/2017 Time Performed: 12:10:44 PTAGE: 46 years EKG: Sinus rhythm WITH SINUS ARRHYTHMIA MINIMAL VOLTAGE CRITERIA FOR LVH, CONSIDER NORMAL VARIANT BORDERLINE ECG NO PREVIOUS TRACING DOCTOR: Reilly Hoffman Interpretating Date/Time 09/12/2017 22:15:26
[2017-09-13 03:17] VITALS: BP 111/82; PULSE 77; RESP 18; TEMP 98.9; O2SAT 97
[2017-09-13 07:42] VITALS: BP 135/83; PULSE 65; RESP 19; TEMP 98; O2SAT 99
--- NOTE | 2017-09-13 07:46 | EKG ---
Date Performed: 09/12/2017 Time Performed: 15:54:35 PTAGE: 46 years EKG: Sinus rhythm NORMAL ECG PREVIOUS TRACING : 09/12/2017 12.10 Since previous tracing, no significant change noted DOCTOR: Shivam Colin Interpretating Date/Time 09/13/2017 07:46:01
--- NOTE | 2017-09-13 07:47 | EKG ---
Date Performed: 09/12/2017 Time Performed: 18:26:58 PTAGE: 46 years EKG: Sinus rhythm WITH SINUS ARRHYTHMIA NORMAL ECG PREVIOUS TRACING : 09/12/2017 15.54 Since previous tracing, no significant change noted DOCTOR: Shivam Colin Interpretating Date/Time 09/13/2017 07:46:34
[2017-09-13 08:00] VITALS: PULSE 71
[2017-09-13] MEDS: SODIUM CHLORIDE 0.9% FLUSH 10 ML FLUSH IV FLUSH SCH (09:00)
[2017-09-13] MEDS ORDERED: ASPIRIN 325 MG TAB PO SCH (09:00)
[2017-09-13] MEDS ORDERED: REGADENOSON INJ 0.4 MG/5 ML SYR ONE (11:11)
--- NOTE | 2017-09-13 12:40 | RADRPT ---
EXAM DATE/TIME: 09/13/2017 11:06 [place] COMPARISON: No previous studies available for comparison. INDICATIONS : Substernal chest pain for one year. Angina. DOSE: 25.4 mCi Tc99m Myoview at stress. 8.5 mCi Tc99m Myoview at rest. 0.4 mg Lexiscan STRESS SYMPTOMS: Dyspnea, headache, leg numbness and heart racing. EJECTION FRACTION: 55% MEDICAL HISTORY : Hypertension. Smoker. SURGICAL HISTORY : section. ENCOUNTER: Initial ACUITY: 1 yr PAIN SCALE: 6/10 LOCATION: Substernal chest TECHNIQUE: The patient underwent pharmacologic stress with infusion of prescribed dose. Continuous ECG tracing was monitored during stress. Gated SPECT imaging was performed after stress and conventional SPECT i maging was performed at rest. The examination was performed on a SPECT/CT scanner, both attenuation and non-corrected datasets were reviewed. FINDINGS: DISTRIBUTION: The maximum perfused segment at stress is in the inferior wall. PERFUSION STUDY: The pattern of perfusion at stress is within normal limits. GATED STUDY: There is decreased activity seen at the apical and mid anterior wall on the stress images. This decre ased activity at the apical septum, at the mid ventricle lateral wall, and the apex on the stress venkata ges. The most prominently affected areas the anterior wall. The decreased activity is in the lower 10 -30%. CONCLUSION: Suspected mild ischemia and anterior wall and possibly in the apical septum, mid lateral wall and ape x. RISK CATEGORY: Low (<1% Annual Mortality Rate) Cleve Roy MD on September 13, 2017 at 12:26 Board Certified Radiologist. This report was verified electronically.
[2017-09-13 16:01] VITALS: BP 143/87; PULSE 84; RESP 20; TEMP 98.2; O2SAT 99
--- NOTE | 2017-09-13 16:37 | PD.CARD.PN ---
Subjective Subjective Remarks Offers no complaints. Denies chest pain. Objective Medications Current Medications Medications (Trade) Dose Ordered Sig/[place] Route Start Time Stop Time Status Last Admin (NS Flush) 2 ml UNSCH PRN IVF 09/12/17 12:15 (NS Flush) 2 ml BID IV FLUSH 09/12/17 21:00 09/12/17 20:08 (Tylenol) 500 mg Q4H PRN PO 09/12/17 14:15 (Zofran Inj) 4 mg Q6H PRN IV PUSH 09/12/17 14:15 (Nitrostat Sl) 0.4 mg Q5M PRN SL 09/12/17 14:15 09/12/17 16:18 (Aspirin) 325 mg DAILY PO 09/13/17 09:00 09/13/17 08:45 (Pepcid) 20 mg BID PRN PO 09/12/17 15:45 (Catapres) 0.1 mg Q8HR PRN PO 09/12/17 16:00 Vital Signs / I&O Vital Signs Date Time Temp Pulse Resp B/P (MAP) Pulse Ox O2 Delivery O2 Flow Rate FiO2 09/13/17 16:01 98.2 84 20 143/87 (105) 99 09/13/17 08:00 71 09/13/17 07:42 98.0 65 19 135/83 (100) 99 09/13/17 03:17 98.9 77 18 111/82 (92) 97 09/12/17 23:08 98.4 78 18 141/89 (106) 100 09/12/17 20:49 98.0 67 18 172/93 (119) 97 09/12/17 19:35 99 21 I/O 09/12/17 09/12/17 09/12/17 09/13/17 09/13/17 09/13/17 07:00 15:00 23:00 07:00 15:00 23:00 Intake Total 500 ml 240 ml Balance 500 ml 240 ml Intake Oral 240 ml IV Total 500 ml # Voids 1 Physical Exam Gen: NAD Lungs:CTA Cardiac: RRR GI: Nontender. Laboratory Laboratory Tests Test 09/12/17 18:15 Total Creatine Kinase 124 U/L Creatine Kinase MB LESS THAN 0.5 NG/ML Troponin I LESS THAN 0.02 NG/ML Imaging Last 24 hours Impressions Myocardial Perfusion Scan Nuc WeatherBug 09/13/17 0000 Signed Impressions: Service Date/Time: Wednesday, September 13, 2017 11:06 - CONCLUSION: Suspected mild ischemia and anterior wall and possibly in the apical septum, mid lateral wall and apex. RISK CATEGORY: Low (<1%% Annual Mortality Rate) Cleve Roy MD Assessment and Plan Problem List: (1) Chest pain, atypical ICD Codes: R07.89 - Other chest pain Status: Acute Plan: Lexiscan is abnormal. Patient is to be seen by [facility] Dr Montero. Patient care transferred to [facility] Dr Jewell. Patient is stable and is agreeable to this plan. (2) Obesity ICD Codes: E66.9 - Obesity, unspecified Status: Chronic (3) GERD (gastroesophageal reflux disease) ICD Codes: K21.9 - Gastro-esophageal reflux disease without esophagitis Status: Chronic (4) Elevated blood pressure reading ICD Codes: R03.0 - Elevated blood-pressure reading, without diagnosis of hypertension Problem Qualifiers (1) Obesity: Qualified Codes: E66.09 - Other obesity due to excess calories; Z68.34 - Body mass index (bmi) 34.0-34.9, adult Loyd Andrea Sep 13, 2017 16:37
--- NOTE | 2017-09-13 18:02 | HHI.DS ---
Discharge Summary Admission Date Sep 12, 2017 at 13:10 Discharge Date: Sep 13, 2017 Admitting Diagnosis Chest Pain (1) Chest pain, atypical ICD Code: R07.89 - Other chest pain Status: Acute Procedures myocardial perfusion scan Brief History - From Admission History from patient, ER notes, and review of medical records from cardiology team. Patient initially was admitted on September 12, 2017 to chest pain center for complaints of chest pains. She reports this has happened prior as well. She reports extreme stress with work and life in general and episodes of hypertension previously as well. She was seen with PCP up until about 5 months ago were told her to control her blood pressure with diet and exercise first. Patient initial hospitalization reveals elevated blood pressure in the 200s over 100s. Admission notes reviewed: "1 year history of intermittent chest pains without any precipitating factors, can occur with activity or rest. Typically can occur intermittently throughout the day and last for hours. Began yesterday afternoon and was still occurring and worsening this morning prompting her to come to the ER for evaluation. She does get associated nausea but no vomiting. Does have a history of GERD and was on Rx medicine when she had a PCP, now takes OTC Zantac with some relief. At times also gets associated dyspnea. Has diaphoresis intermittently but doesn't believe related. Has swelling of ankles with prolonged standing at work or with sitting but generally improves at night when legs elevated. No PND or Orthopnea. Denies any past cardiac work up. Nitro SL did not help the pain but endorses the Morphine decreased it to a low level. Has had B/P elevations in past and endorses she was recommended to treat with healthy lifestyle changes, has not been on medication for it." CBC/BMP: 09/12/17 1220 09/12/17 1220 Significant Findings Laboratory Tests Test 09/12/17 12:20 09/12/17 15:35 09/12/17 18:15 Prothrombin Time 9.7 SEC (9.8-11.6) D-Dimer Quantitative (PE/DVT) 0.70 MG/L FEU (0.00-0.50) Calcium Level 8.4 MG/DL (8.5-10.1) Chloride Level 108 MEQ/L (98-107) Estimat Glomerular Filtration Rate 75 ML/MIN (>89) Troponin I LESS THAN 0.02 NG/ML LESS THAN 0.02 NG/ML LESS THAN 0.02 NG/ML Creatine Kinase MB LESS THAN 0.5 NG/ML PE at Discharge Awake, alert, oriented. Sitting up in bed. Pleasant. Obese body habitus. Heart rate is regular, no murmur appreciated. Lungs sounds are clear. Decreased air entry bilaterally. Abdomen is soft and nontender. Bilateral lower extremity with no significant edema or asymmetry. Neurology, no focal deficits. Hospital Course Patient admitted for chest pain to [facility]. She was evaluated by [facility] mirror polisher and physician nurse practitioner physicians assistant. She has undergone myocardial perfusion test which is read as abnormal although noted as low risk less than 1%. Patient's case was discussed with mirror polisher Dr. Montero by [facility]. Dr. Montero came and evaluated the patient at the bedside and cleared her for discharge. No further cardiac workup needed. Advised for aspirin daily. Patient at the time of my exam is awake alert and oriented. She reports of chest pain but also admits to high stress levels. She reports a prior history of hypertension on routine exams for which her PCP was telling her to control initially with diet and exercise. On review of medical records, her blood pressures were high on initial admission to the hospital while she was complaining of chest pains. These blood pressures were normalized without any medical intervention. Current blood pressures for the past 18 hours have been around 140 over 80s or less. Again, no further medications was given. Therefore discussed with patient at bedside. Advised patient to continue with low-salt diet, exercise. Quit smoking. Measure blood pressures at home at least twice a day and write it down in a notebook. Follow-up with PCP and showed these blood pressure recordings to decide on whether patient needs medications. Patient is also concerned about occasional bilateral pedal edema. 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 Advised to keep her feet up at that time. Pt Condition on Discharge: Good Discharge Disposition: Discharge Home Discharge Time: <= 30 minutes Discharge Instructions DIET: Follow Instructions for: Heart Healthy Diet Activities you can perform: Regular-No Restrictions Medication Profile: No Active Prescriptions or Reported Meds Dominic Jewell MD Sep 13, 2017 18:02
--- NOTE | 2017-09-13 18:38 | MB ---
cc: MILLICENT MCKENZIE DATE OF CONSULTATION 09/13/2017 INDICATION Chest pain. HISTORY OF THE PRESENT ILLNESS This is a 46-year-old female without prior history of known heart disease who presented with intermittent chest pain. Her symptoms are atypical, not occurring with any exertion. They were not associated with vomiting but was associated with some mild nausea. She came into the emergency department ruled out by cardiac biomarkers and electrocardiogram was unremarkable. Stress test showed a mild small defect low risk but we are consulted for further recommendations. PAST MEDICAL HISTORY 1. Hypertension. 2. Gastroesophageal reflux disease. 3. Obesity. MEDICATIONS Reported medication, Zantac. ALLERGIES NO KNOWN DRUG ALLERGIES. SOCIAL HISTORY Denies any alcohol or drug use. Reports smokes about a third of a pack a day for about 6 years. FAMILY HISTORY Denies any family history of early coronary disease or sudden cardiac . REVIEW OF SYSTEMS 12-point reviews was performed and negative unless otherwise noted in the history of present illness. PHYSICAL EXAMINATION VITAL SIGNS: Temperature 98, pulse is 84, blood pressure 143/87 mmHg. GENERAL: Alert and oriented times three in no acute distress. HEENT: Exam shows pupils reactive to light and accommodation. Extraocular movements intact. NECK: No elevation in jugular venous distention. No thyromegaly. No lymphadenopathy. No carotid bruits. LUNGS: Clear to auscultation bilaterally. CARDIOVASCULAR: Regular rate and rhythm without murmurs, rubs or gallops. ABDOMEN: Nontender. Nondistended. Good bowel sounds. No hepatosplenomegaly. EXTREMITIES: Show no clubbing, cyanosis or edema. Good peripheral pulses. NEUROLOGIC: Cranial nerves intact. Motor strength is grossly intact. LABORATORY DATA WBC 6.8, hemoglobin 12.8, platelet count 318. INR is 1.0. Sodium is 139, potassium 4.3, BUN is 15, creatinine 0.97. ASSESSMENT 1. Atypical chest pain. 2. Hypertension. 3. Obesity. PLAN Her symptoms are rather atypical and nonexertional. She has a mild defect which is low risk category and I suspect likely related to breast attenuation artifact. At this point I will not proceed with an invasive strategy. I recommend that she initiate aspirin. If she continues to have recurrent symptoms, we will decide further management. If she has intermittent palpitations could consider outpatient Holter monitor. She can follow up with her primary care doctor. Okay from a cardiac perspective for discharge. MD VIRGINIA Gomes /5:18 PM /6:16 PM
--- NOTE | 2017-09-14 09:31 | TR ---
Date Performed: 09/13/2017 Time Performed: 11:25:21 DOCTOR: Isha Kamara DRUG LIST: CLINICAL HISTORY: CHEST PAIN REASON FOR TEST: CHEST PAIN REASON FOR ENDING: OBSERVATION: CONCLUSION: Lexiscan stress test was performed under standard four minute protocol. Radionucl[place] e was injected one minute prior to ending the test. No electrocardiographic abormalities were present to suggest ischemia. Nuclear imaging and interpretation are pending. COMMENTS:
== END 2017-09-13 18:57 | disposition home or self-care (01) ==
LOC: NEPE 11:54 → NEDA 13:10 → NEPFCDU 14:45
PROVIDERS: ADMIT Internal Medicine; ATTEND Internal Medicine
DX: R07.89 Other chest pain (principal); I10 Essential (primary) hypertension; E66.09 Other obesity due to excess calories; K21.9 Gastro-esophageal reflux disease without esophagitis; F17.210 Nicotine dependence, cigarettes, uncomplicated; Z82.49 Family history of ischemic heart disease and other diseases of the circulatory system; R11.0 Nausea; R06.00 Dyspnea, unspecified; I49.8 Other specified cardiac arrhythmias; Z68.34 Body mass index [BMI] 34.0-34.9, adult; R94.31 Abnormal electrocardiogram [ECG] [EKG]
CPT/HCPCS: 71010; 71275; 78452; 80053; 82550; 82552; 83690; 83735; 84484; 84703; 85025; 85379; 85610; 85730; 93005; 93017; 96361; 96374; 99285; A9502; G0378; J2270; J2785; J7040; Q9967